=== PATIENT | male | born 1955 | race American Indian/Alaskan Native ===

== ENCOUNTER 2025-08-15 09:57 | Outpatient (CLI) | payer MEDICARE ==
[2025-08-15] MEDS ORDERED: Iopamidol 300 61% 100 ML VIAL FS ONE (12:29)
== END 2025-08-15 09:58 | disposition home or self-care (01) ==
LOC: CSHCT 09:57
PROVIDERS: ATTEND Radiology Radiation Oncology
DX: C34.11 Malignant neoplasm of upper lobe, right bronchus or lung (principal); I67.82 Cerebral ischemia
CPT/HCPCS: 70470; Q9967